=== PATIENT | male | born 1955 | race Caucasian/White ===

== ENCOUNTER → 2022-02-11 | Day surgery (SDC) | payer MEDICARE, OTHER ==
[~2022-02-11] MED LIST: ADVAIR 500-501 EACH INH; FLONASE 0.05% N16 GM; HYDROCODON-ACE1 EAC2 PO; HYDROCODON-ACE1 EAC4 PO; MONTELUKAST SOD10 MG PO; PEPCID40 MG PO; PHENOBARBITAL64.8 MG PO; PROAIR HFA8.5 GM INH; PROVENTIL HFA6.7 GM INH; SYMBICORT 16010.2 GM INH
[2022-02-11 10:01] LABS: HEMOGLOBIN 14.1 gm/dl (14.0-17.5); RED BLOOD COUNT 4.52 M/UL (4.20-5.50); WHITE BLOOD COUNT 8.8 K/UL (4.5-11.0)
[2022-02-11 10:24] LABS: BUN/CREATININE RATIO 14 (0-10)
== END | disposition home or self-care (01) ==
LOC: OR 07:30
PROVIDERS: Orthopaedic Surgery
PROC: 3E0T3BZ Introduction of Anesthetic Agent into Peripheral Nerves and Plexi, Percutaneous Approach (ICD-10-PCS; 2022-02-11)
PROC: 0PSJ04Z Reposition Left Radius with Internal Fixation Device, Open Approach (ICD-10-PCS; principal; 2022-02-11 07:30)
PROC: 0KCS0ZZ Extirpation of Matter from Right Lower Leg Muscle, Open Approach (ICD-10-PCS; 2022-02-11 07:30)
DX: S52.552A Other extraarticular fracture of lower end of left radius, initial encounter for closed fracture (principal); S80.11XA Contusion of right lower leg, initial encounter; E78.5 Hyperlipidemia, unspecified; J44.9 Chronic obstructive pulmonary disease, unspecified; K21.9 Gastro-esophageal reflux disease without esophagitis; E11.9 Type 2 diabetes mellitus without complications; Z79.4 Long term (current) use of insulin; Z79.51 Long term (current) use of inhaled steroids; Z79.899 Other long term (current) drug therapy; Z87.891 Personal history of nicotine dependence; W18.30XA Fall on same level, unspecified, initial encounter; Y92.096 Garden or yard of other non-institutional residence as the place of occurrence of the external cause
CPT/HCPCS: 71045; 73110; 76000; 80048; 83036; 85027; 85610; 85730; 93005; C1713; J0592; J0690; J1100; J1170; J2405; J2704; J2795; J3010